=== PATIENT | female | born 1965 | race Caucasian/White ===

== ENCOUNTER → 2019-02-05 | Outpatient (CLI) | payer MEDICARE, OTHER ==
[~2019-02-05] MED LIST: ALLER-TEC D 5-1 EACH PO; ALYACEN1 EAC1 PO; AMOCLA875 PO; ARIP10 PO; ASPI81EC PO; Adult Low Dose81 MG PO; BELSOMRA20 MG; BUPR75 PO; CARI350 PO; CLON.5 PO; CRUTCH2 USE; CYCL10 PO; Cafergot Table1 EACH; DICL75ER PO; ESCI20; ESOM20; ESOM20 PO; GABA100; HYDACE5 PO; HYDHCL25 PO; HYDR1TAB94; Ipratropium Bro30 ML; LITH300CA; NORT25; PREG150 PO; PROAIR RESPICL90 MCG; PYRI100 PO; Percocet 5-3251 EACH PO; RXHYDACE PO; RXPHEN200 PO; SERT100; SERT100 PO; SULTRIDS PO; TOPI25; TRAM50; TRAZ; TRAZ100; TRAZ100 PO; VENL150ER; VITAMIN D35000 UNIT PO
== END | disposition home or self-care (01) ==
LOC: LAB SHORT 08:40 → PLD 08:40
DX: L57.0 Actinic keratosis (principal); L98.429 Non-pressure chronic ulcer of back with unspecified severity; L98.8 Other specified disorders of the skin and subcutaneous tissue
CPT/HCPCS: 88305

== ENCOUNTER 2019-02-21 21:05 | Observation (INO) | payer MEDICARE, OTHER ==
[~2019-02-21] VITALS: Ht 167.6 cm; Wt 87.0 kg
[~2019-02-21 21:05] MED LIST changes: -Cafergot Table1 EACH; +Cafergot Table1 EACH PO; -ESCI20; +ESCI20 PO; -HYDR1TAB94; +HYDR1TAB94 PO; -NORT25; +NORT25 PO; -PROAIR RESPICL90 MCG; +PROAIR RESPICL90 MCG INH
[2019-02-21 21:28] LABS: BASOPHILS ABSOLUTE AUTO 0.04 K/mm3 (0.00-0.23); BASOPHILS PERCENT AUTO 1 % (0-2); EOSINOPHILS ABSOLUTE AUTO 0.14 K/mm3 (0.00-0.68); EOSINOPHILS PERCENT AUTO 2 % (0-6); Hematocrit 37.8 % (33.0-51.0); Hemoglobin 12.4 g/dL (11.5-16.0); IMMATURE GRAN ABSOLUTE AUTO 0.02 K/mm3 (0.00-0.10); IMMATURE GRAN PERCENT AUTO 0 % (0-1); LYMPHOCYTES ABSOLUTE AUTO 2.42 K/mm3 (0.84-5.20); LYMPHOCYTES PERCENT AUTO 41 % (21-46); MONOCYTES ABSOLUTE AUTO 0.46 K/mm3 (0.16-1.47); MONOCYTES PERCENT AUTO 8 % (4-13); Mean Corpuscular HGB 30.1 pg (26.0-34.0); Mean Corpuscular HGB Conc 32.8 g/dL (31.5-36.5); Mean Corpuscular Volume 92 fL (80-100); Mean Platelet Volume 9.5 fL (9.1-12.4); NEUTROPHILS ABSOLUTE AUTO 2.84 K/mm3 (1.96-9.15); NEUTROPHILS PERCENT AUTO 48 % (41-73); Platelet Count 322 K/mm3 (150-400); RDW Coefficient Variation 13.2 % (11.7-14.2); RDW Standard Deviation 45.3 fL (35.1-46.3); Red Blood Cell Count 4.12 M/mm3 (3.80-5.20); White Blood Cell Count 5.92 K/mm3 (4.00-11.30)
[2019-02-21 21:52] LABS: Alanine Aminotransfer (ALT/SGP 36 U/L (12-78); Albumin/Globulin Ratio 1.5 (0.8-1.8); Alk Phos 78 U/L (50-136); Anion Gap 10 mmol/L (6-16); Aspartate Aminotrans (AST/SGOT 27 U/L (12-37); Bilirubin, Total 0.5 mg/dL (0.1-1.0); Blood Urea Nitrogen 16 mg/dL (8-24); Bun/Creatinine Ratio 15.7 (12.0-20.0); CO2, Blood 22 mmol/L (21-32); Calcium, Blood 8.6 mg/dL (8.5-10.1); Chloride, Blood 106 mmol/L (98-108); Creatinine, Blood 1.02 mg/dL (0.40-1.00); Globulin, Blood 2.6 g/dL (2.2-4.0); Glomerular Filtration Rate >60 (60-); Glucose, Blood 142 mg/dL (70-99); Potassium, Blood 3.6 mmol/L (3.5-5.5); Sodium, Blood 138 mmol/L (136-145); Total Protein, Blood 6.6 g/dL (6.4-8.2); Troponin I <0.015 ng/mL (0.000-0.040)
[2019-02-21 22:11] LABS: Source, Urine Clean Catch
[2019-02-21 22:15] LABS: Bilirubin, Urine Neg (Neg); Blood, Urine Neg (Neg); Glucose Qualitative, Urine Neg (Neg); Ketones, Urine 1+ (Neg); Leukocyte Esterase, Urine 1+ (Neg); Nitrite, Urine Neg (Neg); Protein, Urine 1+ (Neg); Specific Gravity, Urine 1.025 (1.003-1.022); Urobilinogen, Urine 1+ (Normal)
[2019-02-21 22:20] LABS: Appearance, Urine Clear (Clear); Color, Urine Yellow (P-Yellow)
[2019-02-21 22:22] LABS: Amorphous Light (0-Heavy); Bacteria Few /hpf; Mucus Light (0-Heavy); Red Blood Cells, Urine Not Seen /hpf (0-2); Squamous Epithelial Cells Mod /hpf (Few); White Blood Cells, Urine 0-2 /hpf (0-5)
[2019-02-21 22:27] LABS: U Amphetamine Screen Not Detected; U Barbituate Screen Not Detected; U Benzodiazapine Screen Not Detected; U Buprenorphine Screen Not Detected; U Cannabinoids Screen DETECTED; U Cocaine Screen Not Detected; U Methadone Screen Not Detected; U Methamphetamine Screen Not Detected; U Opiates Screen DETECTED; U Oxycodone Screen Not Detected; U Phencyclidine Screen DETECTED; U Propoxyphene Screen Not Detected
[2019-02-21] MEDS ORDERED: ARIPIPRAZOLE5 MG PO (23:05)
[2019-02-21] MEDS ORDERED: AIMOVIG AU70 MG/1 ML SC (23:05)
[2019-02-21] MEDS ORDERED: Mobic15 MG PO (23:05)
[2019-02-21] MEDS ORDERED: MEMA5TAB PO (23:05)
[2019-02-22 00:55] LABS: Prolactin 11.2 ng/mL (2.74-19.64)
--- NOTE | 2019-02-22 03:45 | NUR ---
PCU NOC SHIFT SUMMARY PATIENT ALERT AND ORIENTED TO SELF, LOCATION, FAMILY AND SITUATIION. PATIENT STOOD AND AMBULATED FROM ER GURNEY TO UNIT BED WITH STEADY GAIT. PATIENT DOES REPORT A NEW FINDING FOR HER OF BLE PAIN/NUMBNESS/TINGLING. LUNG SOUND CLEAR. PATIENT ON ROOM AIR. HEART RATE NSR IN THE 70-80'S PER ELECTRONIC EQUIPMENT SET UP OPERATOR. NO ACUTE FINDINGS AT THIS TIME. PATIENT EDUCATED ON POLYPHARMACY. ADMIT COMPLTED AND FAMILY AND PATIENT UPDATE ON PLAN OF CARE DURING STAY. WILL CONTINUE TO MONITOR AND GIVE REPORT TO DAYSHIFT RN.
[2019-02-22 04:09] LABS: Hematocrit 32.7 % (33.0-51.0); Hemoglobin 10.6 g/dL (11.5-16.0); Mean Corpuscular HGB 29.7 pg (26.0-34.0); Mean Corpuscular HGB Conc 32.4 g/dL (31.5-36.5); Mean Corpuscular Volume 92 fL (80-100); Mean Platelet Volume 9.4 fL (9.1-12.4); Platelet Count 251 K/mm3 (150-400); RDW Coefficient Variation 13.4 % (11.7-14.2); RDW Standard Deviation 44.8 fL (35.1-46.3); Red Blood Cell Count 3.57 M/mm3 (3.80-5.20); White Blood Cell Count 5.63 K/mm3 (4.00-11.30)
[2019-02-22 04:29] LABS: Alanine Aminotransfer (ALT/SGP 33 U/L (12-78); Albumin, Blood 3.2 g/dL (3.4-5.0); Albumin/Globulin Ratio 1.3 (0.8-1.8); Alk Phos 67 U/L (50-136); Anion Gap 8 mmol/L (6-16); Aspartate Aminotrans (AST/SGOT 21 U/L (12-37); Bilirubin, Total 0.3 mg/dL (0.1-1.0); Blood Urea Nitrogen 16 mg/dL (8-24); Bun/Creatinine Ratio 16.6 (12.0-20.0); CO2, Blood 24 mmol/L (21-32); Calcium, Blood 7.8 mg/dL (8.5-10.1); Chloride, Blood 110 mmol/L (98-108); Creatinine, Blood 0.96 mg/dL (0.40-1.00); Globulin, Blood 2.4 g/dL (2.2-4.0); Glomerular Filtration Rate >60 (60-); Glucose, Blood 103 mg/dL (70-99); Potassium, Blood 3.8 mmol/L (3.5-5.5); Sodium, Blood 142 mmol/L (136-145); Total Protein, Blood 5.6 g/dL (6.4-8.2)
[2019-02-22] MEDS ORDERED: VENL150ER PO (17:06)
== END 2019-02-22 17:24 | disposition home or self-care (01) ==
LOC: ER 21:05 → PCU 21:06
PROVIDERS: Emergency Medicine; ADMIT Internal Medicine
DX: R55 Syncope and collapse (principal); R56.9 Unspecified convulsions; M79.7 Fibromyalgia; I10 Essential (primary) hypertension; Z88.8 Allergy status to other drugs, medicaments and biological substances; R82.5 Elevated urine levels of drugs, medicaments and biological substances; Z79.899 Other long term (current) drug therapy; Z86.011 Personal history of benign neoplasm of the brain; Z92.3 Personal history of irradiation
CPT/HCPCS: 36415; 70450; 71045; 80053; 81001; 82550; 83735; 84146; 84484; 85025; 85027; 87086; 93005; 93010; 96360; 96372; 99285-25; G0378; J1650; J7030; P9612

== ENCOUNTER → 2019-03-19 | Outpatient (CLI) | payer MEDICARE, OTHER ==
[~2019-03-19] MED LIST changes: +AIMOVIG AU70 MG/1 ML SC; +ARIPIPRAZOLE5 MG PO; +MEMA5TAB PO; +Mobic15 MG PO; +ONDA4ODT MM; +VENL150ER PO
[2019-03-19 14:32] LABS: Candida species (DNA Probe) Negative (NEGATIVE); G. vaginalis (DNA Probe) Negative (NEGATIVE); T. vaginalis (DNA Probe) Negative (NEGATIVE)
[2019-03-20 13:09] LABS: HPV 16 Negative (Negative); HPV 18 Negative (Negative); HPV OTHER HR TYPES Negative (Negative)
== END | disposition home or self-care (01) ==
LOC: LAB 09:25 → LAB SHORT 09:25
PROVIDERS: Nurse Practitioner Obstetrics & Gynecology
DX: Z01.411 Encounter for gynecological examination (general) (routine) with abnormal findings (principal); N76.0 Acute vaginitis; Z98.890 Other specified postprocedural states
CPT/HCPCS: 87480; 87510; 87624; 87660; G0123

== ENCOUNTER 2019-06-12 13:24 | Emergency (ER) | payer MEDICARE, OTHER ==
[~2019-06-12] VITALS: Ht 162.6 cm; Wt 86.2 kg
[~2019-06-12 13:24] MED LIST changes: -ONDA4ODT MM
[2019-06-12 13:54] LABS: BASOPHILS ABSOLUTE AUTO 0.05 K/mm3 (0.00-0.23); BASOPHILS PERCENT AUTO 1 % (0-2); EOSINOPHILS ABSOLUTE AUTO 0.15 K/mm3 (0.00-0.68); EOSINOPHILS PERCENT AUTO 2 % (0-6); Hematocrit 40.7 % (33.0-51.0); Hemoglobin 12.8 g/dL (11.5-16.0); IMMATURE GRAN ABSOLUTE AUTO 0.01 K/mm3 (0.00-0.10); IMMATURE GRAN PERCENT AUTO 0 % (0-1); LYMPHOCYTES ABSOLUTE AUTO 1.22 K/mm3 (0.84-5.20); LYMPHOCYTES PERCENT AUTO 19 % (21-46); MONOCYTES ABSOLUTE AUTO 0.39 K/mm3 (0.16-1.47); MONOCYTES PERCENT AUTO 6 % (4-13); Mean Corpuscular HGB 29.2 pg (26.0-34.0); Mean Corpuscular HGB Conc 31.4 g/dL (31.5-36.5); Mean Corpuscular Volume 93 fL (80-100); Mean Platelet Volume 9.2 fL (9.1-12.4); NEUTROPHILS ABSOLUTE AUTO 4.78 K/mm3 (1.96-9.15); NEUTROPHILS PERCENT AUTO 72 % (41-73); Platelet Count 340 K/mm3 (150-400); RDW Coefficient Variation 13.8 % (11.7-14.2); RDW Standard Deviation 47.2 fL (35.1-46.3); Red Blood Cell Count 4.39 M/mm3 (3.80-5.20)
[2019-06-12 14:18] LABS: Alanine Aminotransfer (ALT/SGP 44 U/L (12-78); Albumin, Blood 3.9 g/dL (3.4-5.0); Albumin/Globulin Ratio 1.3 (0.8-1.8); Alk Phos 91 U/L (50-136); Anion Gap 4 mmol/L (6-16); Aspartate Aminotrans (AST/SGOT 25 U/L (12-37); Bilirubin, Total 0.4 mg/dL (0.1-1.0); Blood Urea Nitrogen 14 mg/dL (8-24); Bun/Creatinine Ratio 14.6 (12.0-20.0); CO2, Blood 27 mmol/L (21-32); Chloride, Blood 108 mmol/L (98-108); Creatinine, Blood 0.96 mg/dL (0.40-1.00); Globulin, Blood 2.9 g/dL (2.2-4.0); Glomerular Filtration Rate >60 (60-); Glucose, Blood 116 mg/dL (70-99); Potassium, Blood 3.8 mmol/L (3.5-5.5); Sodium, Blood 139 mmol/L (136-145); Total Protein, Blood 6.8 g/dL (6.4-8.2); Troponin I <0.015 ng/mL (0.000-0.040)
[2019-06-12] MEDS ORDERED: ONDA4ODT MM (17:46)
== END 2019-06-12 18:00 | disposition home or self-care (01) ==
LOC: ER 13:24
PROVIDERS: Physician Assistant
DX: R10.13 Epigastric pain (principal); R10.11 Right upper quadrant pain; Z88.2 Allergy status to sulfonamides; Z88.8 Allergy status to other drugs, medicaments and biological substances; Z88.1 Allergy status to other antibiotic agents; Z79.899 Other long term (current) drug therapy; F32.9 Major depressive disorder, single episode, unspecified; G43.909 Migraine, unspecified, not intractable, without status migrainosus; Z87.891 Personal history of nicotine dependence
CPT/HCPCS: 36415; 71046; 74177; 80053; 83690; 84484; 85025; 93005; 93010; 99284-25; A9270-GY; Q9967

== ENCOUNTER 2021-03-16 09:41 | Day surgery (SDC) | payer MEDICARE, OTHER ==
[~2021-03-16] VITALS: Ht 165.1 cm; Wt 80.7 kg
[~2021-03-16 09:41] MED LIST changes: +ABILIFY MYCITE10 M2 PO; +EMGALITY S120 MG/1 M SC; +FAMO40 PO; +MOBIC15 MG PO; +NORTRIPTYLINE H50 M2 PO; +Norco 5-325 Ta1 EACH PO; +ONDA4 PO; +ONDA4ODT MM; +PREG100 PO
--- NOTE | 2021-03-16 10:07 | NUR ---
03/16/21 Franchesca Taylor 1 TRY RIGHT HAND VALVE
== END 2021-03-16 11:35 | disposition home or self-care (01) ==
LOC: ORSCSDS 09:41
PROVIDERS: Surgery
PROC: 0DJ08ZZ Inspection of Upper Intestinal Tract, Via Natural or Artificial Opening Endoscopic (ICD-10-PCS; principal; 2021-03-16 11:00)
PROC: 0DJD8ZZ Inspection of Lower Intestinal Tract, Via Natural or Artificial Opening Endoscopic (ICD-10-PCS; principal; 2021-03-16 11:00)
DX: K21.9 Gastro-esophageal reflux disease without esophagitis (principal); K44.9 Diaphragmatic hernia without obstruction or gangrene; R19.4 Change in bowel habit; G47.33 Obstructive sleep apnea (adult) (pediatric); M79.7 Fibromyalgia; E78.5 Hyperlipidemia, unspecified; F32.9 Major depressive disorder, single episode, unspecified; Z79.899 Other long term (current) drug therapy
CPT/HCPCS: J2704

== ENCOUNTER → 2021-07-21 | Outpatient (CLI) | payer MEDICARE, OTHER ==
[2021-07-22 15:12] LABS: HPV 16 Negative (Negative); HPV 18 Negative (Negative); HPV OTHER HR TYPES Negative (Negative)
== END | disposition home or self-care (01) ==
LOC: LAB SHORT 16:16 → LAB 16:16
PROVIDERS: Obstetrics & Gynecology
DX: Z01.419 Encounter for gynecological examination (general) (routine) without abnormal findings (principal)
CPT/HCPCS: 87624; G0123

== ENCOUNTER → 2021-10-05 | Outpatient (CLI) | payer MEDICARE, OTHER | END | disposition home or self-care (01) | LOC: LAB SHORT 13:30 | DX: R93.89 Abnormal findings on diagnostic imaging of other specified body structures (principal) | CPT/HCPCS: 88305 ==

== ENCOUNTER 2022-09-23 11:53 | Day surgery (SDC) | payer MEDICARE, OTHER ==
[~2022-09-23] VITALS: Ht 165.1 cm; Wt 84.6 kg
[2022-09-23] MEDS ORDERED: TOPI100 (13:13)
[2022-09-23] MEDS ORDERED: VENL150ER PO (13:17)
[2022-09-23] MEDS ORDERED: SUMA25 PO (13:19)
[2022-09-23] MEDS ORDERED: Phentermine HCl15 MG PO (13:20)
[2022-09-23] MEDS ORDERED: LINZESS72 MCG PO (13:20)
[2022-09-23] MEDS ORDERED: STIOLTO RESPIMAT4 G1 IH (13:21)
== END 2022-09-23 16:06 | disposition home or self-care (01) ==
LOC: ORSCSDS 11:53
PROVIDERS: Podiatrist Foot & Ankle Surgery
PROC: 0QSP04Z Reposition Left Metatarsal with Internal Fixation Device, Open Approach (ICD-10-PCS; principal; 2022-09-23 13:30)
DX: S92.352K Displaced fracture of fifth metatarsal bone, left foot, subsequent encounter for fracture with nonunion (principal); X50.1XXD Overexertion from prolonged static or awkward postures, subsequent encounter; J44.9 Chronic obstructive pulmonary disease, unspecified; Z87.891 Personal history of nicotine dependence; G47.33 Obstructive sleep apnea (adult) (pediatric); K21.9 Gastro-esophageal reflux disease without esophagitis; F41.9 Anxiety disorder, unspecified; F43.10 Post-traumatic stress disorder, unspecified; M79.7 Fibromyalgia; Z79.899 Other long term (current) drug therapy
CPT/HCPCS: C1713; C1769; J1100; J2001; J2250; J2405; J2704; J2795; J3010; J7120

== ENCOUNTER → 2022-10-14 | Outpatient (CLI) | payer MEDICARE, OTHER ==
[~2022-10-14] MED LIST changes: +LINZESS72 MCG PO; +Phentermine HCl15 MG PO; +STIOLTO RESPIMAT4 G1 IH; +SUMA25 PO; +TOPI100
== END | disposition home or self-care (01) ==
LOC: LAB SHORT 11:37 → LAB 11:37
DX: K21.9 Gastro-esophageal reflux disease without esophagitis (principal)
CPT/HCPCS: 87338

== ENCOUNTER 2025-01-13 17:13 | Emergency (ER) | payer MEDICARE, OTHER ==
[~2025-01-13] VITALS: Ht 165.1 cm; Wt 74.8 kg
[~2025-01-13 17:13] MED LIST changes: -BISA10S PR; -DOC250 PO
[2025-01-13 17:19] VITALS: BP 126/71
[2025-01-13] MEDS ORDERED: NS 1,000 ML IV SCH (17:25)
[2025-01-13] MEDS ORDERED: Morphine Sulfate 4 MG/1 ML Injection IV ONE (17:25)
[2025-01-13] MEDS ORDERED: Ondansetron HCl 2 MG / ML 2ML Vial IV ONE (17:25)
[2025-01-13 18:40] LABS: BASOPHILS ABSOLUTE AUTO 0.05 K/mm3 (0.00-0.23); BASOPHILS PERCENT AUTO 0 % (0-2); EOSINOPHILS ABSOLUTE AUTO 0.11 K/mm3 (0.00-0.68); EOSINOPHILS PERCENT AUTO 1 % (0-6); Hematocrit 43.8 % (33.0-51.0); IMMATURE GRAN ABSOLUTE AUTO 0.04 K/mm3 (0.00-0.10); IMMATURE GRAN PERCENT AUTO 0 % (0-1); LYMPHOCYTES ABSOLUTE AUTO 0.79 K/mm3 (0.84-5.20); LYMPHOCYTES PERCENT AUTO 7 % (21-46); MONOCYTES ABSOLUTE AUTO 0.53 K/mm3 (0.16-1.47); MONOCYTES PERCENT AUTO 5 % (4-13); Mean Corpuscular HGB 30.3 pg (26.0-34.0); Mean Corpuscular HGB Conc 34.2 g/dL (31.5-36.5); Mean Corpuscular Volume 89 fL (80-100); Mean Platelet Volume 8.8 fL (9.1-12.4); NEUTROPHILS ABSOLUTE AUTO 10.37 K/mm3 (1.96-9.15); NEUTROPHILS PERCENT AUTO 87 % (41-73); Platelet Count 340 K/mm3 (150-400); RDW Coefficient Variation 13.7 % (11.7-14.2); RDW Standard Deviation 44.3 fL (35.1-46.3); Red Blood Cell Count 4.95 M/mm3 (3.80-5.20); White Blood Cell Count 11.89 K/mm3 (4.00-11.30)
[2025-01-13 19:37] LABS: Albumin, Blood 3.9 g/dL (3.4-5.0); Albumin/Globulin Ratio 1.3 (0.8-1.8); Bilirubin, Total 0.8 mg/dL (0.1-1.0); Bun/Creatinine Ratio 18.5 (12.0-20.0); Calcium, Blood 9.2 mg/dL (8.5-10.1); Creatinine, Blood 0.65 mg/dL (0.40-1.00); Globulin, Blood 2.9 g/dL (2.2-4.0); Potassium, Blood 3.4 mmol/L (3.5-5.5); Total Protein, Blood 6.8 g/dL (6.4-8.2)
[2025-01-13] MEDS ORDERED: ONDA4ODT MM (19:51)
[2025-01-13] MEDS ORDERED: BISA10S PR (19:51)
[2025-01-13] MEDS ORDERED: DOC250 PO (19:51)
[2025-01-13] MEDS ORDERED: Ondansetron 4 MG SoluTab SL ONE (20:15)
[2025-01-13] MEDS ORDERED: HYDROcodone 5-APAP 325 TAB PO ONE (20:15)
== END 2025-01-13 20:28 | disposition home or self-care (01) ==
LOC: ER 17:13
PROVIDERS: Emergency Medicine
DX: R10.32 Left lower quadrant pain (principal); T47.3X5A Adverse effect of saline and osmotic laxatives, initial encounter; K59.00 Constipation, unspecified; Z88.2 Allergy status to sulfonamides; Z88.8 Allergy status to other drugs, medicaments and biological substances; Z91.040 Latex allergy status; Z79.899 Other long term (current) drug therapy; Z87.891 Personal history of nicotine dependence
CPT/HCPCS: 74022; 74177; 80053; 83690; 85025; 99284-25; A9270; Q9967

== ENCOUNTER → 2025-01-13 | Outpatient (CLI) | payer MEDICARE, OTHER ==
[~2025-01-13] MED LIST changes: +BISA10S PR; +DOC250 PO
[2025-01-13 09:09] LABS: BASOPHILS ABSOLUTE AUTO 0.07 K/mm3 (0.00-0.23); BASOPHILS PERCENT AUTO 1 % (0-2); EOSINOPHILS ABSOLUTE AUTO 0.24 K/mm3 (0.00-0.68); EOSINOPHILS PERCENT AUTO 2 % (0-6); IMMATURE GRAN ABSOLUTE AUTO 0.03 K/mm3 (0.00-0.10); IMMATURE GRAN PERCENT AUTO 0 % (0-1); LYMPHOCYTES ABSOLUTE AUTO 1.25 K/mm3 (0.84-5.20); LYMPHOCYTES PERCENT AUTO 11 % (21-46); MONOCYTES ABSOLUTE AUTO 0.66 K/mm3 (0.16-1.47); MONOCYTES PERCENT AUTO 6 % (4-13); Mean Corpuscular HGB 30.5 pg (26.0-34.0); Mean Corpuscular Volume 90 fL (80-100); Mean Platelet Volume 8.7 fL (9.1-12.4); NEUTROPHILS ABSOLUTE AUTO 8.68 K/mm3 (1.96-9.15); NEUTROPHILS PERCENT AUTO 80 % (41-73); Platelet Count 402 K/mm3 (150-400); RDW Coefficient Variation 13.9 % (11.7-14.2); RDW Standard Deviation 45.4 fL (35.1-46.3); Red Blood Cell Count 5.24 M/mm3 (3.80-5.20); White Blood Cell Count 10.93 K/mm3 (4.00-11.30)
[2025-01-13 09:23] LABS: Albumin, Blood 4.6 g/dL (3.4-5.0); Albumin/Globulin Ratio 1.5 (0.8-1.8); Bilirubin, Total 0.7 mg/dL (0.1-1.0); Bun/Creatinine Ratio 11.6 (12.0-20.0); Calcium, Blood 9.7 mg/dL (8.5-10.1); Creatinine, Blood 0.95 mg/dL (0.40-1.00); Globulin, Blood 3.1 g/dL (2.2-4.0); Potassium, Blood 3.2 mmol/L (3.5-5.5); Total Protein, Blood 7.7 g/dL (6.4-8.2)
== END ==
LOC: LAB 09:05 → LAB SHORT 09:05
PROVIDERS: Physician Assistant
DX: R10.9 Unspecified abdominal pain (principal)
CPT/HCPCS: 80053; 83690; 85025

== ENCOUNTER 2025-01-16 13:50 | Observation (INO) | payer MEDICARE, OTHER ==
[~2025-01-16] VITALS: Ht 162.6 cm; Wt 73.6 kg
[~2025-01-16 13:50] MED LIST changes: +BISA10S PR; +DOC250 PO
[2025-01-16] MEDS ORDERED: Ondansetron HCl 2 MG / ML 2ML Vial IV ONE (14:10)
[2025-01-16] MEDS ORDERED: NS 1,000 ML IV SCH ×2 (14:10→17:00)
[2025-01-16 14:18] LABS: BASOPHILS ABSOLUTE AUTO 0.06 K/mm3 (0.00-0.23); BASOPHILS PERCENT AUTO 1 % (0-2); EOSINOPHILS ABSOLUTE AUTO 0.13 K/mm3 (0.00-0.68); EOSINOPHILS PERCENT AUTO 2 % (0-6); Hematocrit 42.3 % (33.0-51.0); Hemoglobin 14.7 g/dL (11.5-16.0); IMMATURE GRAN ABSOLUTE AUTO 0.03 K/mm3 (0.00-0.10); IMMATURE GRAN PERCENT AUTO 0 % (0-1); LYMPHOCYTES ABSOLUTE AUTO 1.34 K/mm3 (0.84-5.20); LYMPHOCYTES PERCENT AUTO 19 % (21-46); MONOCYTES ABSOLUTE AUTO 0.57 K/mm3 (0.16-1.47); MONOCYTES PERCENT AUTO 8 % (4-13); Mean Corpuscular HGB 30.6 pg (26.0-34.0); Mean Corpuscular HGB Conc 34.8 g/dL (31.5-36.5); Mean Corpuscular Volume 88 fL (80-100); Mean Platelet Volume 8.6 fL (9.1-12.4); NEUTROPHILS ABSOLUTE AUTO 5.11 K/mm3 (1.96-9.15); NEUTROPHILS PERCENT AUTO 71 % (41-73); Platelet Count 427 K/mm3 (150-400); RDW Coefficient Variation 13.2 % (11.7-14.2); RDW Standard Deviation 43.1 fL (35.1-46.3); Red Blood Cell Count 4.81 M/mm3 (3.80-5.20); White Blood Cell Count 7.24 K/mm3 (4.00-11.30)
[2025-01-16 15:12] LABS: Albumin, Blood 3.7 g/dL (3.4-5.0); Albumin/Globulin Ratio 1.4 (0.8-1.8); Bilirubin, Total 0.4 mg/dL (0.1-1.0); Bun/Creatinine Ratio 22.4 (12.0-20.0); Calcium, Blood 9.2 mg/dL (8.5-10.1); Creatinine, Blood 0.62 mg/dL (0.40-1.00); Globulin, Blood 2.7 g/dL (2.2-4.0); Total Protein, Blood 6.4 g/dL (6.4-8.2)
[2025-01-16] MEDS ORDERED: OMEP20ER PO (15:17)
[2025-01-16] MEDS ORDERED: Budeprion Xl300 MG PO (15:19)
[2025-01-16] MEDS ORDERED: BUTALB-ACETAMI1 EAC5 PO (15:21)
[2025-01-16] MEDS ORDERED: Ondansetron HCl 2 MG / ML 2ML Vial IV PRN (17:00)
[2025-01-16] MEDS ORDERED: Potassium Chloride 20 MEQ TabCR PO ONE (17:00)
[2025-01-16 18:04] VITALS: BP 141/84
[2025-01-16] MEDS ORDERED: NS 1,000 ML IV ONE (18:22)
[2025-01-16 20:18] VITALS: BP 123/74
[2025-01-16] MEDS ORDERED: ARIPiprazole 10 MG Tab PO SCH (21:00)
[2025-01-16] MEDS ORDERED: OxyCODONE HCL 5 MG TAB PO PRN (21:35)
[2025-01-17 05:43] LABS: BASOPHILS ABSOLUTE AUTO 0.05 K/mm3 (0.00-0.23); BASOPHILS PERCENT AUTO 1 % (0-2); EOSINOPHILS ABSOLUTE AUTO 0.15 K/mm3 (0.00-0.68); EOSINOPHILS PERCENT AUTO 2 % (0-6); Hematocrit 37.7 % (33.0-51.0); Hemoglobin 12.8 g/dL (11.5-16.0); IMMATURE GRAN ABSOLUTE AUTO 0.03 K/mm3 (0.00-0.10); IMMATURE GRAN PERCENT AUTO 1 % (0-1); LYMPHOCYTES ABSOLUTE AUTO 1.38 K/mm3 (0.84-5.20); LYMPHOCYTES PERCENT AUTO 22 % (21-46); MONOCYTES ABSOLUTE AUTO 0.53 K/mm3 (0.16-1.47); MONOCYTES PERCENT AUTO 8 % (4-13); Mean Corpuscular HGB 30.6 pg (26.0-34.0); Mean Corpuscular Volume 90 fL (80-100); Mean Platelet Volume 8.7 fL (9.1-12.4); NEUTROPHILS ABSOLUTE AUTO 4.27 K/mm3 (1.96-9.15); NEUTROPHILS PERCENT AUTO 67 % (41-73); Platelet Count 340 K/mm3 (150-400); RDW Coefficient Variation 13.4 % (11.7-14.2); RDW Standard Deviation 44.4 fL (35.1-46.3); Red Blood Cell Count 4.18 M/mm3 (3.80-5.20); White Blood Cell Count 6.41 K/mm3 (4.00-11.30)
--- NOTE | 2025-01-17 05:52 | NUR ---
SHIFT SUMMARY: PT AOX4 SBA TO THE BATHROOM. PT IS DISTENDED AND ENDORSES ABDOMINAL PAIN, MEDICATED PER EMR. BOWEL SOUNDS HYPERACTIVE BUT PT DENIES BM ONLY SOME GAS. PT ANXIOUS ABOUT PROCESS OF GETTING BETTER AND POTENTIAL SURGERY. FOLLOWS COMMANDS AND COOPERATIVE IN CARE. PT ENDORSED SOME DELIRIUM THE LAST FEW NIGHTS, BED ALARM WAS IN PLACE BUT NO ACUTE EVENTS OVERNIGHT. PT IN BED, BED IN LOWEST POSITION, CALL LIGHT IN REACH. CONTINUING CARE.
[2025-01-17 06:04] LABS: Bun/Creatinine Ratio 15.9 (12.0-20.0); Calcium, Blood 8.1 mg/dL (8.5-10.1); Creatinine, Blood 0.69 mg/dL (0.40-1.00); Potassium, Blood 3.4 mmol/L (3.5-5.5)
[2025-01-17] MEDS ORDERED: Mag Hydrox/AL Hydrox/Simeth 30 ML UDC PO ONE (07:40)
[2025-01-17 07:45] VITALS: BP 123/73
[2025-01-17] MEDS ORDERED: D5W-1/2NS 1,000 ML IV SCH (08:00)
[2025-01-17] MEDS ORDERED: buPROPion HCL 150 MG TAB.SR.12H PO SCH (08:00)
[2025-01-17] MEDS ORDERED: Citalopram Hydrobromide 20 MG Tab PO SCH (09:00)
[2025-01-17] MEDS ORDERED: Omeprazole 20 MG CapCR PO SCH (09:00)
[2025-01-17] MEDS ORDERED: Enoxaparin 40 MG/0.4 ML SYR SC SCH (09:00)
[2025-01-17] MEDS ORDERED: Lactulose 20 GM/30 ML UDC PO SCH (09:00)
[2025-01-17] MEDS ORDERED: Potassium Chloride 20 MEQ TabCR PO ONE (09:05)
[2025-01-17] MEDS ORDERED: Polyethylene Glycol 3350 17 gm PO PRN (09:45)
[2025-01-17] MEDS ORDERED: Magnesium Hydroxide Conc 10 ML UDC PO SCH (10:00)
[2025-01-17] MEDS ORDERED: Lidocaine HCl 4% Cream 5 GM TOP SCH (14:00)
[2025-01-17 16:01] VITALS: BP 130/67
--- NOTE | 2025-01-17 18:23 | NUR ---
SHIFT SUMMARY NIX CONSULTED AND EMAR UPDATED W/ BOWEL CARE. BOWEL CARE GIVEN AND EFFECTIVE. PT HAD 3 BM'S. PAIN MEDICATED PER EMAR. PT HAD A LOW BLOOD GLUCOSE THIS AM AND D5 INF GIVEN. BLOOD GLUCOSE RECHECK WAS 148, D5 D/C. PT TOLERATING PO. K LOW AND ORAL K GIVEN. NO OTHER ACUTE CHANGES. CALL LIGHT WITHIN REACH AND PT ABLE TO MAKE NEEDS KNOWN.
[2025-01-17 19:18] VITALS: BP 133/75
[2025-01-17] MEDS ORDERED: Famotidine 20 MG Tab PO ONE (21:50)
--- NOTE | 2025-01-18 04:21 | NUR ---
SHIFT SUMM: PT IS A 60 YO FULL CODE WHO WAS ADMITED FOR COLITIS/ABD PAIN. PT IS IND IN THE ROOM AND PAIN HAS BEEN MANAGED PER EMAR. PT HAD SOME HEARTBURN AND PEPCID WAS ORDERED PER HOSPITALIST BECAUSE ITS WHAT WORKS FOR HER AT HOME. PT REFUSED LACTULOSE AND MILK OF MAG BECAUSE SHE HAS HAD "HORRIBLE DIARRHEA" BUT IT SEEMS TO BE THICKENING UP SOME STATES PT. PT IS ON RA AND IS CURRENTLY ON CLEAR LIQUIDS AND CAN ADVANCE DIET TOLERATED. PT IS RESTING AND HAS CALL LIGHT IN REACH
[2025-01-18 04:50] VITALS: BP 127/72
[2025-01-18 05:35] LABS: BASOPHILS ABSOLUTE AUTO 0.08 K/mm3 (0.00-0.23); BASOPHILS PERCENT AUTO 1 % (0-2); EOSINOPHILS PERCENT AUTO 3 % (0-6); Hematocrit 38.9 % (33.0-51.0); Hemoglobin 13.4 g/dL (11.5-16.0); IMMATURE GRAN ABSOLUTE AUTO 0.02 K/mm3 (0.00-0.10); IMMATURE GRAN PERCENT AUTO 0 % (0-1); LYMPHOCYTES ABSOLUTE AUTO 1.69 K/mm3 (0.84-5.20); LYMPHOCYTES PERCENT AUTO 26 % (21-46); MONOCYTES PERCENT AUTO 9 % (4-13); Mean Corpuscular HGB 30.3 pg (26.0-34.0); Mean Corpuscular HGB Conc 34.4 g/dL (31.5-36.5); Mean Corpuscular Volume 88 fL (80-100); Mean Platelet Volume 8.8 fL (9.1-12.4); NEUTROPHILS ABSOLUTE AUTO 3.92 K/mm3 (1.96-9.15); NEUTROPHILS PERCENT AUTO 60 % (41-73); Platelet Count 362 K/mm3 (150-400); RDW Coefficient Variation 13.4 % (11.7-14.2); RDW Standard Deviation 43.4 fL (35.1-46.3); Red Blood Cell Count 4.42 M/mm3 (3.80-5.20); White Blood Cell Count 6.51 K/mm3 (4.00-11.30)
[2025-01-18 06:05] LABS: Bun/Creatinine Ratio 7.5 (12.0-20.0); Calcium, Blood 8.3 mg/dL (8.5-10.1); Creatinine, Blood 0.53 mg/dL (0.40-1.00); Potassium, Blood 3.6 mmol/L (3.5-5.5)
[2025-01-18 07:54] VITALS: BP 137/74
[2025-01-18] MEDS ORDERED: Famotidine 20 MG Tab PO SCH (09:00)
--- NOTE | 2025-01-18 10:30 | NUR ---
OUT OF ROOM NOTE: PATIENT LEFT THE ROOM AT 1030 TO IMAGING.
[2025-01-18] MEDS ORDERED: CITRUCEL FIBER LAXAT PO (15:01)
--- NOTE | 2025-01-18 15:41 | NUR ---
SHIFT SUMMARY: NO ACUTE CHANGES T/O SHIFT. PATIENT A&OX4, PLEASANT AND COOPERATIVE c CARE. VERBALIZES NEEDS AND CALLS APPROPRIATELY. PATIENT NOT ON TELE. DENIES CHEST PAIN/PRESSURE.PATIENT ON RA, SATTING ABOVE 95%. PATIENT DENIES ANY SOB, DIZZINESS, HEADACHE. PATIENT MEDICATED FOR NAUSEA X1. PATIENT ON FULL LIQUID DIET TOLERATES WELL. PATIENT DENIES N/V AFTER EATING HER LUNCH. PATIENT CONTINENT BLADDER/BOWEL. PATIENT STILL HAS WEAKNESS IN LOWER EXTREMITIES WHEN AMBULATING. PATIENT IS IND IN ROOM. FAMILY AT BEDSIDE T/O SHIFT. PATIENT RECIEVED SCHEDULED AND PRN MEDS PER EMAR. PATIENT HAS BED IN LOWEST POSITION AND CALL LIGHT IN REACH. DISCHARGE/PLANNING NOTE: PATIENT DISCHARGED HOME AT 1529. PIV DC'D BY KAYE RN/DESTINY NURSE. PATIENT WAS EDUCATED BY KAYE RN/BREAK NURSE REGARDING ADMITTED DX, SYMPTOM MANAGMENT, AND NEW RX. PATIENT TRANSPORTED VIA WHEELCHAIR BY TUBE MACHINE OPERATOR HELPER. PATIENT BELONGINGS GATHERED UP AND WENT HOME WITH PATIENT.
[2025-01-18] MEDS ORDERED: Magnesium Oxide 400 MG Tab PO SCH (21:00)
[2025-01-19] MEDS ORDERED: Methylcellulose 19 GM PKT PO SCH (09:00)
== END 2025-01-18 15:29 | disposition home or self-care (01) ==
LOC: ER 13:50 → ERHOLD 13:51 → MEDS 13:51
PROVIDERS: Emergency Medicine; ADMIT Family Medicine
DX: K59.00 Constipation, unspecified (principal); E87.1 Hypo-osmolality and hyponatremia; E87.6 Hypokalemia; D75.839 Thrombocytosis, unspecified; F32.9 Major depressive disorder, single episode, unspecified; K21.9 Gastro-esophageal reflux disease without esophagitis; Z79.899 Other long term (current) drug therapy; Z87.891 Personal history of nicotine dependence; Z88.2 Allergy status to sulfonamides; Z88.8 Allergy status to other drugs, medicaments and biological substances; Z91.040 Latex allergy status
CPT/HCPCS: 36415; 74019; 74177; 80048; 80053; 82947; 83690; 85025; 93005; 93010; 96361; 96372; 96374-59; 96376; 99285-25; A9270; G0378; J1650; J2405; J7030; J7042; Q9967

== ENCOUNTER → 2025-02-18 | Outpatient (CLI) | payer MEDICARE, OTHER ==
[~2025-02-18] MED LIST changes: +BELSOMRA20 MG PO; +BUDESONIDE-FO10.2 G3 IH; +BUTALB-ACETAMI1 EAC5 PO; +Budeprion Xl300 MG PO; +CITRUCEL FIBER LAXAT PO; +CONSTULOSE10 GM/155 PO; +EMGALITY120 MG/1 M SQ; +NORTRIPTYLINE H5012 PO; +OMEP20ER PO; +UBRELVY100 MG PO
[2025-02-18 16:16] LABS: Adenovirus F 40/41 Not Detected (NOT DETECT); Astrovirus Not Detected (NOT DETECT); Campylobacter Sp Not Detected (NOT DETECT); Cryptosporidium Not Detected (NOT DETECT); Cyclospora Cayetanensis Not Detected (NOT DETECT); E. Coli O157 Not Detected (NOT DETECT); Entamoeba Histolytica Not Detected (NOT DETECT); Enteroaggregative E. coli-EAEC Not Detected (NOT DETECT); Enteropathogenic E. coli-EPEC Not Detected (NOT DETECT); Enterotoxigenic E. coli-ETEC Not Detected (NOT DETECT); Giardia Lamblia Not Detected (NOT DETECT); Norovirus GI/GII Not Detected (NOT DETECT); Plesiomonas Shigelloides Not Detected (NOT DETECT); Rotavirus A Not Detected (NOT DETECT); Salmonella Sp Not Detected (NOT DETECT); Sapovirus Not Detected (NOT DETECT); Shiga Toxin-prod E. coli-STEC Not Detected (NOT DETECT); Shigella/Enteroin E. coli-EIEC Not Detected (NOT DETECT); Vibrio Cholerae Not Detected (NOT DETECT); Vibrio Sp Not Detected (NOT DETECT); Yersinia Enterocolitica Not Detected (NOT DETECT)
[2025-02-19 11:49] LABS: Stool Occult Bld Immuno 1 Negative (NEGATIVE)
== END | disposition home or self-care (01) ==
LOC: LAB 06:54 → LAB SHORT 06:54
PROVIDERS: Physician Assistant Medical
DX: R19.7 Diarrhea, unspecified (principal); R10.31 Right lower quadrant pain
CPT/HCPCS: 82274; 87507

== ENCOUNTER 2025-03-10 17:24 | Emergency (ER) | payer MEDICARE, OTHER ==
[~2025-03-10] VITALS: Ht 162.6 cm; Wt 70.3 kg
[2025-03-10] MEDS ORDERED: Ketorolac Tromethamine 30mg Vial IV ONE (17:45)
[2025-03-10 17:59] LABS: BASOPHILS ABSOLUTE AUTO 0.06 K/mm3 (0.00-0.23); BASOPHILS PERCENT AUTO 1 % (0-2); EOSINOPHILS ABSOLUTE AUTO 0.14 K/mm3 (0.00-0.68); EOSINOPHILS PERCENT AUTO 3 % (0-6); Hematocrit 38.8 % (33.0-51.0); Hemoglobin 13.3 g/dL (11.5-16.0); IMMATURE GRAN ABSOLUTE AUTO 0.01 K/mm3 (0.00-0.10); IMMATURE GRAN PERCENT AUTO 0 % (0-1); LYMPHOCYTES ABSOLUTE AUTO 1.55 K/mm3 (0.84-5.20); LYMPHOCYTES PERCENT AUTO 34 % (21-46); MONOCYTES ABSOLUTE AUTO 0.39 K/mm3 (0.16-1.47); MONOCYTES PERCENT AUTO 9 % (4-13); Mean Corpuscular HGB 30.1 pg (26.0-34.0); Mean Corpuscular HGB Conc 34.3 g/dL (31.5-36.5); Mean Corpuscular Volume 88 fL (80-100); Mean Platelet Volume 9.2 fL (9.1-12.4); NEUTROPHILS ABSOLUTE AUTO 2.45 K/mm3 (1.96-9.15); NEUTROPHILS PERCENT AUTO 53 % (41-73); Platelet Count 318 K/mm3 (150-400); RDW Coefficient Variation 13.7 % (11.7-14.2); RDW Standard Deviation 43.9 fL (35.1-46.3); Red Blood Cell Count 4.42 M/mm3 (3.80-5.20)
[2025-03-10 18:49] LABS: Albumin, Blood 3.9 g/dL (3.4-5.0); Albumin/Globulin Ratio 1.6 (0.8-1.8); Bilirubin, Total 0.4 mg/dL (0.1-1.0); Bun/Creatinine Ratio 5.1 (12.0-20.0); Calcium, Blood 9.3 mg/dL (8.5-10.1); Creatinine, Blood 0.78 mg/dL (0.40-1.00); Globulin, Blood 2.4 g/dL (2.2-4.0); Potassium, Blood 3.4 mmol/L (3.5-5.5); Total Protein, Blood 6.3 g/dL (6.4-8.2)
[2025-03-10 19:25] LABS: Source, Urine Voided
[2025-03-10 19:34] LABS: Appearance, Urine Clear (Clear); Bilirubin, Urine Neg (Neg); Blood, Urine Neg (Neg); Color, Urine Yellow (P-Yellow); Glucose Qualitative, Urine Neg (Neg); Ketones, Urine 3+ (Neg); Leukocyte Esterase, Urine Neg (Neg); Nitrite, Urine Neg (Neg); Protein, Urine Neg (Neg); Urobilinogen, Urine NORM (Normal)
[2025-03-10] MEDS ORDERED: METPRE4DP PO (21:54)
[2025-03-10] MEDS ORDERED: IBUP600 PO (21:54)
[2025-03-10 22:04] VITALS: BP 154/87
== END 2025-03-10 22:06 | disposition home or self-care (01) ==
LOC: ER 17:24
PROVIDERS: Emergency Medicine
DX: R10.9 Unspecified abdominal pain (principal); M54.10 Radiculopathy, site unspecified; G43.909 Migraine, unspecified, not intractable, without status migrainosus; Z87.891 Personal history of nicotine dependence; Z88.2 Allergy status to sulfonamides; Z88.8 Allergy status to other drugs, medicaments and biological substances; Z91.040 Latex allergy status; Z79.51 Long term (current) use of inhaled steroids; Z79.899 Other long term (current) drug therapy
CPT/HCPCS: 74177; 80053; 81003; 83690; 85025; 93005; 93010; 96374-59; 99284-25; J1885; Q9967

== ENCOUNTER 2025-06-03 19:45 | Inpatient (IN) | payer MEDICARE, OTHER ==
[~2025-06-03] VITALS: Ht 162.6 cm; Wt 68.3 kg
[~2025-06-03 19:45] MED LIST changes: +ACET500 PO; +IBUP600 PO; +METPRE4DP PO
[2025-06-03 20:23] LABS: BASOPHILS ABSOLUTE AUTO 0.10 K/mm3 (0.00-0.23); BASOPHILS PERCENT AUTO 1 % (0-2); EOSINOPHILS ABSOLUTE AUTO 0.24 K/mm3 (0.00-0.68); EOSINOPHILS PERCENT AUTO 3 % (0-6); Hematocrit 37.3 % (33.0-51.0); Hemoglobin 12.9 g/dL (11.5-16.0); IMMATURE GRAN ABSOLUTE AUTO 0.04 K/mm3 (0.00-0.10); IMMATURE GRAN PERCENT AUTO 1 % (0-1); LYMPHOCYTES ABSOLUTE AUTO 1.60 K/mm3 (0.84-5.20); LYMPHOCYTES PERCENT AUTO 21 % (21-46); MONOCYTES ABSOLUTE AUTO 0.60 K/mm3 (0.16-1.47); MONOCYTES PERCENT AUTO 8 % (4-13); Mean Corpuscular HGB Conc 34.6 g/dL (31.5-36.5); Mean Corpuscular Volume 88 fL (80-100); NEUTROPHILS ABSOLUTE AUTO 4.88 K/mm3 (1.96-9.15); NEUTROPHILS PERCENT AUTO 66 % (41-73); NRBC ABSOLUTE 0.00 K/mm3 (0.00-0.02); NRBC Auto 0.0 /100 WBC (0.0-0.2); Platelet Count 379 K/mm3 (150-400); RDW Coefficient Variation 13.1 % (11.7-14.2); RDW Standard Deviation 42.5 fL (35.1-46.3)
[2025-06-03 20:36] LABS: Alanine Aminotransfer (ALT/SGP 53.0 U/L (12-78); Albumin, Blood 4.0 g/dL (3.4-5.0); Albumin/Globulin Ratio 1.6 (0.8-1.8); Anion Gap 9.0 mmol/L (3-11); Aspartate Aminotrans (AST/SGOT 23.0 U/L (12-37); Bilirubin, Total 0.4 mg/dL (0.1-1.0); Blood Urea Nitrogen 14.0 mg/dL (8-24); CO2, Blood 24.0 mmol/L (21-32); Calcium, Blood 8.5 mg/dL (8.5-10.1); Chloride, Blood 96.0 mmol/L (98-108); Creatinine, Blood 0.76 mg/dL (0.40-1.00); Globulin, Blood 2.5 g/dL (2.2-4.0); Glucose, Blood 98.0 mg/dL (70-99); Potassium, Blood 4.0 mmol/L (3.5-5.5); Sodium, Blood 125.0 mmol/L (136-145); Total Protein, Blood 6.5 g/dL (6.4-8.2)
[2025-06-03 22:44] LABS: Source, Urine Clean Catch
[2025-06-03] MEDS ORDERED: NS 1,000 ML IV SCH (22:55)
[2025-06-03] MEDS ORDERED: Ketorolac Tromethamine 15mg Vial IV ONE (22:55)
[2025-06-03 23:15] LABS: Bilirubin, Urine Neg (Neg); Glucose Qualitative, Urine Neg (Neg); Ketones, Urine Neg (Neg); Leukocyte Esterase, Urine Neg (Neg); Protein, Urine Neg (Neg); Specific Gravity, Urine 1.010 (1.003-1.022); Urobilinogen, Urine NORM (Normal)
[2025-06-03 23:30] LABS: Color, Urine Pale Yellow (P-Yellow)
[2025-06-04] MEDS ORDERED: FLU VACC TS2025-26(6MOS UP)/PF 45 MCG/0.5 ML SYRINGE IM SCH (00:10)
[2025-06-04] MEDS ORDERED: Ondansetron HCl 2 MG / ML 2ML Vial IV PRN (00:10)
[2025-06-04] MEDS ORDERED: NS 1,000 ML IV SCH (00:10)
[2025-06-04 03:05] VITALS: BP 130/83
[2025-06-04 03:34] LABS: Thyroid Stimulating Hormone 1.37 uIU/mL (0.360-4.800)
[2025-06-04 03:42] LABS: BASOPHILS ABSOLUTE AUTO 0.09 K/mm3 (0.00-0.23); BASOPHILS PERCENT AUTO 1 % (0-2); EOSINOPHILS ABSOLUTE AUTO 0.29 K/mm3 (0.00-0.68); EOSINOPHILS PERCENT AUTO 5 % (0-6); Hematocrit 35.2 % (33.0-51.0); Hemoglobin 12.3 g/dL (11.5-16.0); IMMATURE GRAN ABSOLUTE AUTO 0.02 K/mm3 (0.00-0.10); IMMATURE GRAN PERCENT AUTO 0 % (0-1); LYMPHOCYTES ABSOLUTE AUTO 1.74 K/mm3 (0.84-5.20); LYMPHOCYTES PERCENT AUTO 27 % (21-46); MONOCYTES ABSOLUTE AUTO 0.60 K/mm3 (0.16-1.47); MONOCYTES PERCENT AUTO 9 % (4-13); Mean Corpuscular HGB Conc 34.9 g/dL (31.5-36.5); Mean Corpuscular Volume 89 fL (80-100); NEUTROPHILS ABSOLUTE AUTO 3.71 K/mm3 (1.96-9.15); NEUTROPHILS PERCENT AUTO 58 % (41-73); NRBC ABSOLUTE 0.00 K/mm3 (0.00-0.02); NRBC Auto 0.0 /100 WBC (0.0-0.2); Platelet Count 330 K/mm3 (150-400); RDW Coefficient Variation 12.9 % (11.7-14.2); RDW Standard Deviation 42.2 fL (35.1-46.3)
[2025-06-04 04:37] LABS: Alanine Aminotransfer (ALT/SGP 46.0 U/L (12-78); Albumin, Blood 3.4 g/dL (3.4-5.0); Albumin/Globulin Ratio 1.5 (0.8-1.8); Anion Gap 10.0 mmol/L (3-11); Aspartate Aminotrans (AST/SGOT 22.0 U/L (12-37); Bilirubin, Total 0.5 mg/dL (0.1-1.0); Blood Urea Nitrogen 10.0 mg/dL (8-24); CO2, Blood 23.0 mmol/L (21-32); Calcium, Blood 8.0 mg/dL (8.5-10.1); Chloride, Blood 96.0 mmol/L (98-108); Creatinine, Blood 0.64 mg/dL (0.40-1.00); Globulin, Blood 2.3 g/dL (2.2-4.0); Glucose, Blood 88.0 mg/dL (70-99); Potassium, Blood 3.7 mmol/L (3.5-5.5); Sodium, Blood 125.0 mmol/L (136-145); Total Protein, Blood 5.7 g/dL (6.4-8.2)
[2025-06-04] MEDS ORDERED: PROG100 PO ×2 (04:53→09:01)
[2025-06-04] MEDS ORDERED: Bentyl20 MG PO (04:54)
[2025-06-04] MEDS ORDERED: Diclofenac Sodi50 MG PO (05:00)
[2025-06-04] MEDS ORDERED: OMEP20ER PO ×2 (05:01→08:59)
[2025-06-04] MEDS ORDERED: TOPI100 PO (05:05)
[2025-06-04] MEDS ORDERED: LINZESS145 MCG PO (05:06)
[2025-06-04] MEDS ORDERED: ARIPIPRAZOLE2 M1 PO (05:06)
[2025-06-04] MEDS ORDERED: ESCI20 PO (05:07)
--- NOTE | 2025-06-04 06:08 | NUR ---
SHIFT SUMMARY/ADMISSION NOTE PATIENT AMBULATED FROM [facility] TO HOSPITAL BED WITH NO ASSISTANCE, 2 RN STANDBY. PATIENT VERY PLEASANT, A&OX4, REQUESTS CONSULT FOR POA PAPERWORK ON THIS ADMISSION. DAUGHTER AT BEDSIDE FOR ADMISSION. WILL BRING HOME MED LIST FOR PURPOSES OF MED REC. VS STABLE AND WNL/ 1L FLUIDS STARTED AT 75 ML/PER HR TO CORRECT 125 NA.
[2025-06-04 07:13] LABS: U Amphetamine Screen Not Detected; U Barbituate Screen Not Detected; U Benzodiazapine Screen Not Detected; U Buprenorphine Screen Not Detected; U Cannabinoids Screen DETECTED; U Cocaine Screen Not Detected; U Methadone Screen Not Detected; U Methamphetamine Screen Not Detected; U Opiates Screen Not Detected; U Oxycodone Screen Not Detected; U Phencyclidine Screen Not Detected
[2025-06-04] MEDS ORDERED: ALBU90OI INH (08:49)
[2025-06-04] MEDS ORDERED: DOC250 PO (08:54)
[2025-06-04] MEDS ORDERED: CLIMARA1 EACH TOP (08:57)
[2025-06-04] MEDS ORDERED: HYDHCL25 PO (08:58)
[2025-06-04] MEDS ORDERED: ONDA4 SL (09:00)
[2025-06-04] MEDS ORDERED: Enoxaparin 40 MG/0.4 ML SYR SC SCH (09:00)
[2025-06-04] MEDS ORDERED: PREG100 PO (09:00)
[2025-06-04] MEDS ORDERED: LINACLOTIDE 145 MCG PO SCH (09:00)
[2025-06-04] MEDS ORDERED: HYDROcodone 5-APAP 325 TAB PO PRN (09:20)
--- NOTE | 2025-06-04 09:23 | NUR ---
ASSUMPTION NOTE: THIS RN TO ASSUME CARE OF PATIENT. PATIENT HAS BEEN UP IN THE BATHROOM ON AND OFF THIS MORNING AND COMPLAINING OF HAVING A MIGRAINE. THIS RN GOT MEDICATION LIST RECONCILLED AND GOT VERBAL ORDER TO START HYDROCODNE FOR MIGRAINE PAIN. PATIENT AWARE AND VITAL SIGNS STABLE,ASKED FOR COFFEE AND DENTAL HYGIENTEIST TO SEE HER.
--- NOTE | 2025-06-04 09:42 | NUR ---
ROUNDED; ROUNDED AND SPOKE WITH PATIENT AND FAMILY AT BEDSIDE. MD AWARE THAT [facility] HAS OTHER MEDICATIONS THAT PATIENT STATES THAT [facility] DOES NOT KNOWN ABOUT THAT IS FOR HERSTOMACH PAIN.
[2025-06-04 09:43] VITALS: BP 131/72
[2025-06-04] MEDS ORDERED: ESTRADIOL (TWI1 EAC4 TD (11:12)
[2025-06-04] MEDS ORDERED: PROGESTERONE 100 MG (11:13)
[2025-06-04] MEDS ORDERED: Budeprion Xl300 MG (11:15)
[2025-06-04] MEDS ORDERED: Cipro500 MG (11:19)
[2025-06-04] MEDS ORDERED: PRED20 PO (11:27)
[2025-06-04 11:49] LABS: Uric Acid, Blood 2.1 mg/dL (2.6-6.0)
[2025-06-04 11:57] VITALS: BP 109/76
[2025-06-04] MEDS ORDERED: PREGABALIN100 MG (13:34)
[2025-06-04] MEDS ORDERED: Phenergan25 M1 (13:34)
[2025-06-04 14:39] LABS: Chloride, Urine, Random 47 mmol/L (55-125); Sodium, Urine, Random 55 mmol/L (20-110)
[2025-06-04 16:38] VITALS: BP 106/60
--- NOTE | 2025-06-04 17:02 | NUR ---
SHIFT SUMMARY: PATIENT IS ALERT AND ORIENTED X4 & COOPERATIVE WITH HER CARE,IS ABLE TO MAKE NEEDS KNOWN & USES CALL LIGHT APPROPRIATELY. ON TELE SHOWING SINUS WITH RATE IN 60-70. SATTING >92% ON ROOM AIR. PATIENT IS A STAND BY ASSIST WITH FRONT WHEELED WALKER FOR STABILITY. PATIENT HAD AN MRI DONE AND ECHO DONE TODAY, SEE CHART FOR RESULTS. PATIENT WORKED WITH PHYSICAL THERAPY AND OCCUPATIONAL THERAPY TODAY AND TOLERATED IT WELL. FAMILY TO BEDSIDE THROUGHOUT SHIFT. PLAN CONTINUES TO BE WORKED UP FOR STROKE AND AWAIT RESULTS FOR ALL IMAGING AND TESTING TO COME BACK. PATIENT CURRENTLY SITTING IN BED,CALL LIGHT WITHIN REACH, BED IN LOWEST LOCKED POSITION & AWAITING DINNER.
[2025-06-04] MEDS ORDERED: AMIT50 PO (19:35)
[2025-06-04 20:56] LABS: Osmolality, Serum 266.0 mos/KG (275-300)
[2025-06-04 21:00] VITALS: BP 100/64
[2025-06-05] VITALS: BP 103/46
[2025-06-05 02:19] VITALS: BP 114/68
[2025-06-05 03:37] VITALS: BP 92/57
[2025-06-05 04:24] LABS: BASOPHILS ABSOLUTE AUTO 0.07 K/mm3 (0.00-0.23); BASOPHILS PERCENT AUTO 1 % (0-2); EOSINOPHILS ABSOLUTE AUTO 0.29 K/mm3 (0.00-0.68); EOSINOPHILS PERCENT AUTO 6 % (0-6); Hematocrit 38.6 % (33.0-51.0); Hemoglobin 13.2 g/dL (11.5-16.0); IMMATURE GRAN ABSOLUTE AUTO 0.03 K/mm3 (0.00-0.10); IMMATURE GRAN PERCENT AUTO 1 % (0-1); LYMPHOCYTES ABSOLUTE AUTO 1.36 K/mm3 (0.84-5.20); LYMPHOCYTES PERCENT AUTO 28 % (21-46); MONOCYTES ABSOLUTE AUTO 0.52 K/mm3 (0.16-1.47); MONOCYTES PERCENT AUTO 11 % (4-13); Mean Corpuscular HGB Conc 34.2 g/dL (31.5-36.5); Mean Corpuscular Volume 91 fL (80-100); NEUTROPHILS ABSOLUTE AUTO 2.65 K/mm3 (1.96-9.15); NEUTROPHILS PERCENT AUTO 54 % (41-73); NRBC ABSOLUTE 0.00 K/mm3 (0.00-0.02); NRBC Auto 0.0 /100 WBC (0.0-0.2); Platelet Count 355 K/mm3 (150-400); RDW Coefficient Variation 13.3 % (11.7-14.2); RDW Standard Deviation 44.0 fL (35.1-46.3)
[2025-06-05 04:52] LABS: Alanine Aminotransfer (ALT/SGP 43.0 U/L (12-78); Albumin, Blood 3.4 g/dL (3.4-5.0); Albumin/Globulin Ratio 1.4 (0.8-1.8); Anion Gap 7.0 mmol/L (3-11); Aspartate Aminotrans (AST/SGOT 14.0 U/L (12-37); Bilirubin, Total 0.3 mg/dL (0.1-1.0); Blood Urea Nitrogen 12.0 mg/dL (8-24); CO2, Blood 24.0 mmol/L (21-32); Calcium, Blood 8.4 mg/dL (8.5-10.1); Chloride, Blood 105.0 mmol/L (98-108); Creatinine, Blood 0.65 mg/dL (0.40-1.00); Globulin, Blood 2.4 g/dL (2.2-4.0); Glucose, Blood 95.0 mg/dL (70-99); Magnesium, Blood 2.0 mg/dL (1.6-2.4); Phosphorus, Blood 3.9 mg/dL (2.5-4.9); Potassium, Blood 4.1 mmol/L (3.5-5.5); Sodium, Blood 132.0 mmol/L (136-145); Total Protein, Blood 5.8 g/dL (6.4-8.2)
--- NOTE | 2025-06-05 05:10 | NUR ---
SHIFT ASSESSMENT PATIENT SHARED CONCERNS ABOUT NOT RECIEVING MENTAL HEALTH MEDS OVERNIGHT. WAS ADVISED THAT PER MD THEY WOULD LOWER SEIZURE THRESHOLD AND WOULD BE DC'd FOR THE TIME BEING. PATIENT WAS UNDERSTANDING AND AGREEABLE, BUT WISHES TO BE LOOPED IN SOONER. IN ADDITION, PROSTHETIC DENTIST, PT SMASHED RT MIDDLE FINGER IN CAR DOOR. cURRENTLY FINGER IS BLACK AT THE NAIL BED, THE NAIL ITSELF IS CRACKED IN SEVERL PLACES, AND THE FINGER ITSELF IF QUITE SWOLLEN. PT REPORTS PAIN BECAME WORSE AFTER MRI 06/04, AND NOW HAS A PULSE. PAIN HAS BEEN TREATED WITH NORCO AND ADDITIONAL 325 OF TYLENOL, WHICH STEPHEN THE PAIN AND SOME OF THE SWELLING DOWN, FINGER LOOKS A TOUCH BETTER THIS AM. PATIENT REMAINS A&OX4 AND VERY PLEASANT.
[2025-06-05 07:09] VITALS: BP 113/73
--- NOTE | 2025-06-05 07:45 | NUR ---
ASSUMPTION OF CARE: PATIENT IS ALERT AND ORIENTED X 4 ABLE TO MAKE NEEDS KNOWN, DENIES NUMBNESS, TINGLING, NAUSEA, VOMITTING, DIZZINESS AT REST, ABLE TO READ HER TEXTS MESSAGES ON PHONE AND REPLY, PATIENT IS HAVING NO SPEECH ISSUES, MOVING ALL EXTREMES WELL. DENIES DECREASED SENSATION WHEN TESTED. PATIENT DENIES CHEST PAIN PRESSURE OR SOB AT REST. DIZZINESS WITH STANDING AND MOVING IMPROVED ONCE SODIUM IMPROVED. VSS, AFEBRILE.
[2025-06-05] MEDS ORDERED: LEVE500 PO (10:06)
--- NOTE | 2025-06-05 10:42 | NUR ---
discharge note: patient wheeled out via wc by Break RN, no acute distress. Patient educated on plan of care follow up water restrictions. patient understood with no concerns. denies chest pain pressure or sob at rest. no change from assumption.
[2025-06-06] MEDS ORDERED: POTA10T PO (00:49)
== END 2025-06-05 10:38 | disposition home or self-care (01) | DRG 101 ==
LOC: ER 19:45 → PCU 19:46 → ERHOLD 19:46 → PCU 06-04 02:59
PROVIDERS: Hospitalist; Student in an Organized Health Care Education/Training Program; ADMIT Internal Medicine
DX: G40.409 Other generalized epilepsy and epileptic syndromes, not intractable, without status epilepticus (principal); E87.1 Hypo-osmolality and hyponatremia; G93.40 Encephalopathy, unspecified; G45.9 Transient cerebral ischemic attack, unspecified; G43.909 Migraine, unspecified, not intractable, without status migrainosus; F32.A Depression, unspecified; K58.9 Irritable bowel syndrome, unspecified; G62.9 Polyneuropathy, unspecified; I10 Essential (primary) hypertension; M79.7 Fibromyalgia; Z85.841 Personal history of malignant neoplasm of brain; Z92.3 Personal history of irradiation; Z88.2 Allergy status to sulfonamides; Z88.8 Allergy status to other drugs, medicaments and biological substances; Z79.51 Long term (current) use of inhaled steroids; Z79.52 Long term (current) use of systemic steroids; Z87.891 Personal history of nicotine dependence
CPT/HCPCS: 36415; 70450; 70544; 70549; 70553; 71046; 80053; 81003; 82436; 83735; 83880; 83930; 83935; 84100; 84300; 84439; 84443; 84484; 84550; 85025; 93005; 93010; 93306; 96372; 96374; 97112; 97116; 97162; 97165; 97530; 99285-25; A9270; A9579; G0378; J1650; J1885; J7030

== ENCOUNTER 2025-06-05 19:43 | Emergency (ER) | payer MEDICARE, OTHER ==
[~2025-06-05] VITALS: Ht 162.6 cm; Wt 68.0 kg
[~2025-06-05 19:43] MED LIST changes: +ALBU90OI INH; +AMIT50 PO; +ARIPIPRAZOLE2 M1 PO; +Bentyl20 MG PO; +Budeprion Xl300 MG; +CLIMARA1 EACH TOP; +Cipro500 MG; +Diclofenac Sodi50 MG PO; +ESTRADIOL (TWI1 EAC4 TD; +LEVE500 PO; +LINZESS145 MCG PO; +ONDA4 SL; +PRED20 PO; +PREGABALIN100 MG; +PROG100 PO; +PROGESTERONE 100 MG; +Phenergan25 M1; +TOPI100 PO
[2025-06-05 20:21] LABS: BASOPHILS ABSOLUTE AUTO 0.06 K/mm3 (0.00-0.23); BASOPHILS PERCENT AUTO 1 % (0-2); EOSINOPHILS ABSOLUTE AUTO 0.20 K/mm3 (0.00-0.68); EOSINOPHILS PERCENT AUTO 4 % (0-6); Hematocrit 40.8 % (33.0-51.0); Hemoglobin 13.7 g/dL (11.5-16.0); IMMATURE GRAN ABSOLUTE AUTO 0.04 K/mm3 (0.00-0.10); IMMATURE GRAN PERCENT AUTO 1 % (0-1); LYMPHOCYTES ABSOLUTE AUTO 1.55 K/mm3 (0.84-5.20); LYMPHOCYTES PERCENT AUTO 28 % (21-46); MONOCYTES ABSOLUTE AUTO 0.48 K/mm3 (0.16-1.47); MONOCYTES PERCENT AUTO 9 % (4-13); Mean Corpuscular HGB Conc 33.6 g/dL (31.5-36.5); Mean Corpuscular Volume 91 fL (80-100); NEUTROPHILS ABSOLUTE AUTO 3.23 K/mm3 (1.96-9.15); NEUTROPHILS PERCENT AUTO 58 % (41-73); NRBC ABSOLUTE 0.00 K/mm3 (0.00-0.02); NRBC Auto 0.0 /100 WBC (0.0-0.2); Platelet Count 419 K/mm3 (150-400); RDW Coefficient Variation 13.3 % (11.7-14.2); RDW Standard Deviation 45.3 fL (35.1-46.3)
[2025-06-05 20:37] LABS: Alanine Aminotransfer (ALT/SGP 67.0 U/L (12-78); Albumin, Blood 3.8 g/dL (3.4-5.0); Albumin/Globulin Ratio 1.5 (0.8-1.8); Anion Gap 15.0 mmol/L (3-11); Aspartate Aminotrans (AST/SGOT 46.0 U/L (12-37); Bilirubin, Total 0.3 mg/dL (0.1-1.0); Blood Urea Nitrogen 11.0 mg/dL (8-24); CO2, Blood 15.0 mmol/L (21-32); Calcium, Blood 8.7 mg/dL (8.5-10.1); Chloride, Blood 107.0 mmol/L (98-108); Creatinine, Blood 0.7 mg/dL (0.40-1.00); Globulin, Blood 2.6 g/dL (2.2-4.0); Glucose, Blood 144.0 mg/dL (70-99); Potassium, Blood 2.7 mmol/L (3.5-5.5); Sodium, Blood 134.0 mmol/L (136-145); Total Protein, Blood 6.4 g/dL (6.4-8.2)
[2025-06-06] MEDS ORDERED: POTA10T PO (00:49)
[2025-06-06] MEDS ORDERED: Potassium Chl 20MEQ/Water100ML 100 ML IV ONE (00:50)
[2025-06-06] MEDS ORDERED: NS 1,000 ML IV SCH (01:30)
[2025-06-06 04:18] VITALS: BP 108/69
== END 2025-06-06 04:24 | disposition home or self-care (01) ==
LOC: ER 19:43
PROVIDERS: Student in an Organized Health Care Education/Training Program
DX: R07.89 Other chest pain (principal); E87.6 Hypokalemia; Z88.2 Allergy status to sulfonamides; Z88.8 Allergy status to other drugs, medicaments and biological substances; Z79.899 Other long term (current) drug therapy; Z87.891 Personal history of nicotine dependence
CPT/HCPCS: 71046; 80053; 84484; 85025; 93005; 93010; 96365; 96366; 99285-25; A9270; J3480; J7030

== ENCOUNTER 2025-08-05 10:23 | Day surgery (SDC) | payer MEDICARE, OTHER ==
[~2025-08-05] VITALS: Ht 162.6 cm; Wt 68.9 kg
[~2025-08-05 10:23] MED LIST changes: +Glycopyrrolate 0.2 MG/ML 1MLVIAL ONE; +Ondansetron HCl 2 MG / ML 2ML Vial ONE; +POTA10T PO; +ePHEDrine Sulfate 50 MG/ML 1ML Injection ONE
[2025-08-05] MEDS ORDERED: BUTALB-CAFF-AC1 EACH (11:34)
[2025-08-05] MEDS ORDERED: BISA10S (11:34)
[2025-08-05] MEDS ORDERED: IPRATROPIUM BRO15 ML (11:37)
[2025-08-05] MEDS ORDERED: HYDROCODONE-AC1 EA19 (11:38)
[2025-08-05] MEDS ORDERED: BUDESONIDE-FO10.2 G3 (11:38)
[2025-08-05] MEDS ORDERED: UBRELVY100 MG (11:39)
[2025-08-05] MEDS ORDERED: EMGALITY120 MG/1 M (11:39)
[2025-08-05] MEDS ORDERED: PRED20 (11:42)
[2025-08-05] MEDS ORDERED: IBUP600 (11:43)
[2025-08-05] MEDS ORDERED: FERSU300 (11:43)
[2025-08-05] MEDS ORDERED: CLON.5 (11:44)
[2025-08-05] MEDS ORDERED: Benzocaine Oral Spray 0.5ML UD ONE (12:39)
[2025-08-05] MEDS ORDERED: Midazolam HCL 1 MG/ML 5MLVIAL ONE (13:15)
[2025-08-05 14:17] VITALS: BP 142/76
== END 2025-08-05 14:40 | disposition home or self-care (01) ==
LOC: ORSCSDS 10:23
PROVIDERS: Internal Medicine Gastroenterology
PROC: 0DJD8ZZ Inspection of Lower Intestinal Tract, Via Natural or Artificial Opening Endoscopic (ICD-10-PCS; principal; 2025-08-05 12:00)
PROC: 0DB58ZX Excision of Esophagus, Via Natural or Artificial Opening Endoscopic, Diagnostic (ICD-10-PCS; principal; 2025-08-05 12:00)
PROC: 0D757ZZ Dilation of Esophagus, Via Natural or Artificial Opening (ICD-10-PCS; principal; 2025-08-05 12:00)
PROC: 0DB78ZX Excision of Stomach, Pylorus, Via Natural or Artificial Opening Endoscopic, Diagnostic (ICD-10-PCS; principal; 2025-08-05 12:00)
PROC: 0DB98ZX Excision of Duodenum, Via Natural or Artificial Opening Endoscopic, Diagnostic (ICD-10-PCS; principal; 2025-08-05 12:00)
DX: K21.9 Gastro-esophageal reflux disease without esophagitis (principal); R19.4 Change in bowel habit; R13.10 Dysphagia, unspecified; K31.7 Polyp of stomach and duodenum; Z87.19 Personal history of other diseases of the digestive system; R10.9 Unspecified abdominal pain; M79.7 Fibromyalgia; J45.909 Unspecified asthma, uncomplicated; Z79.899 Other long term (current) drug therapy
CPT/HCPCS: 88305; 88342; A9270; J0461; J2003; J2250; J2405; J2704; J7120; Q9968